=== PATIENT | female | born 1970 | race Caucasian/White ===

== ENCOUNTER → 2019-04-18 | Outpatient (CLI) | payer OTHER ==
[~2019-04-18] MED LIST: No meds per pt.
[2019-04-18 10:58] LABS: ALBUMIN 4.4 g/dL (3.4-5.0); ANION GAP 4 mmol/L (5-15); CALCIUM 9.3 mg/dL (8.5-10.1); CHLORIDE 109 mmol/L (98-107); MEAN CORPUSCULAR HEMOGLOBIN 29.4 pg (27.0-34.8); MEAN CORPUSCULAR HGB CONC 31.9 g/dL (32.4-35.8); MEAN CORPUSCULAR VOLUME 92.3 fL (80-100); MEAN PLATELET VOLUME 8.3 fL (7.4-10.4); PLATELET COUNT 345 x10^3/uL (130-400); RED BLOOD COUNT 5.17 x10^6/uL (3.82-5.3); RED CELL DISTRIBUTION WIDTH 22.4 % (9.6-15.2)
[2019-04-18 11:03] LABS: ALANINE AMINOTRANSFERASE 25 U/L (12-78); ALKALINE PHOSPHATASE 62 U/L (45-117); BILIRUBIN,TOTAL 0.3 mg/dL (0.2-1.0); CREATININE 0.77 mg/dL (0.55-1.02)
[2019-04-18 11:19] LABS: BASOPHILS # (AUTO) 0.04 x10^3/uL (0-0.1); BASOPHILS % (AUTO) 1 % (0-1); EOSINOPHILS # (AUTO) 0.19 x10^3/uL (0-0.4); EOSINOPHILS % (AUTO) 3 % (1-7); LYMPHOCYTES # (AUTO) 2.08 x10^3/uL (1-3.4); LYMPHOCYTES % (AUTO) 28 % (22-44); MD SCAN; MONOCYTES # (AUTO) 0.66 x10^3/uL (0.2-0.8); MONOCYTES % (AUTO) 9 % (2-9); NEUTROPHILS # (AUTO) 4.53 x10^3/uL (1.8-6.8); NEUTROPHILS % (AUTO) 60 % (42-75)
== END | disposition home or self-care (01) ==
LOC: STAR 09:54
PROVIDERS: ATTEND Obstetrics & Gynecology
DX: Z01.818 Encounter for other preprocedural examination (principal); D64.9 Anemia, unspecified; N85.2 Hypertrophy of uterus; D25.9 Leiomyoma of uterus, unspecified; N92.0 Excessive and frequent menstruation with regular cycle
CPT/HCPCS: 36415; 71046; 80053; 84703; 85025; 93005

== ENCOUNTER 2019-04-26 05:27 | Inpatient (IN) | payer OTHER ==
[~2019-04-26] VITALS: Ht 182.9 cm; Wt 73.0 kg
[2019-04-26] MEDS ORDERED: LACTATED RINGERS 1,000 ML IV SCH (06:03)
[2019-04-26] MEDS ORDERED: FLUORESCEIN SODIUM 500 MG/5 ML ONE (06:49)
[2019-04-26 06:55] LABS: HCG UR SG 1.023 (1.003-1.030)
[2019-04-26] MEDS ORDERED: FENTANYL PF 250 MCG/5ML ONE (07:21)
[2019-04-26] MEDS ORDERED: MIDAZOLAM 1 MG/ML, 2ML ONE (07:21)
[2019-04-26] MEDS ORDERED: MAGNESIUM SULFATE 1 GM/2 ML ONE (07:31)
[2019-04-26] MEDS ORDERED: KETOROLAC 30 MG/1 ML ONE (07:32)
[2019-04-26] MEDS ORDERED: METOCLOPRAMIDE 5 MG/ML, 2ML ONE (07:32)
[2019-04-26] MEDS ORDERED: SUGAMMADEX 200 MG/2 ML IVPush ONE (07:32)
[2019-04-26] MEDS ORDERED: KETAMINE 10 MG/ML, 20ML ONE (07:32)
[2019-04-26] MEDS ORDERED: PROMETHAZINE 25 MG/ML, 1ML IV PRN (08:30)
[2019-04-26] MEDS ORDERED: LABETALOL 5MG/ML, 20ML IV PRN (08:30)
[2019-04-26] MEDS ORDERED: hydrALAzine 20 MG/ML, 1ML IV PRN (08:30)
[2019-04-26] MEDS ORDERED: ONDANSETRON 2MG/ML, 2ML IV PRN ×2 (08:30→13:30)
[2019-04-26] MEDS ORDERED: MEPERIDINE/PF 25MG/ML,1ML IVPush PRN (08:30)
[2019-04-26] MEDS ORDERED: OXYcodone 5 MG/5 ML ORAL.SOL UDC PO PRN ×2 (08:30→13:30)
[2019-04-26] MEDS ORDERED: ACETAMINOPHEN 325 MG TABLET PO PRN ×2 (08:30→13:30)
[2019-04-26] MEDS ORDERED: LORazepam 2 MG/ML, 1ML IVPush PRN (08:30)
[2019-04-26] MEDS ORDERED: PROPOFOL 10 MG/ML, 20ML ONE (08:34)
[2019-04-26] MEDS ORDERED: ONDANSETRON 2MG/ML, 2ML ONE (08:34)
[2019-04-26] MEDS ORDERED: LIDOCAINE-MPF 2% ,5ML ONE (08:34)
[2019-04-26] MEDS ORDERED: ROCURONIUM 10MG/ML,5ML ONE (08:34)
[2019-04-26] MEDS ORDERED: DEXAMETHASONE 4 MG/ML, 1ML ONE ×2 (08:34)
[2019-04-26] MEDS ORDERED: CEFAZOLIN 1,000 MG ONE ×2 (08:34)
[2019-04-26] MEDS ORDERED: EPINEPHRINE 1 MG/ML, 1ML ONE (08:34)
[2019-04-26] MEDS ORDERED: ROPIvacaine/PF 0.5%, 30 ML ONE (08:34)
[2019-04-26] MEDS ORDERED: FENTANYL PF 100 MCG/2ML ONE (09:45)
[2019-04-26] MEDS: FENTANYL PF 100 MCG/2ML IV PRN ×2 (09:46→09:55)
[2019-04-26] MEDS: HYDROmorphone 2 MG/ML, 1ML IVPush PRN ×6 (10:15→11:20)
[2019-04-26] MEDS ORDERED: OXYcodone 5 MG/5 ML ORAL.SOL UDC ONE (10:16)
[2019-04-26] MEDS ORDERED: HYDROmorphone 1 MG/ML, 1ML INJ ONE ×2 (10:16→11:06)
[2019-04-26] MEDS ORDERED: PROMETHAZINE 25 MG/ML, 1ML ONE (10:20)
[2019-04-26] MEDS: D5%-LACTATED RINGERS 1,000 ML IV SCH ×2 (13:30→21:30)
[2019-04-26] MEDS ORDERED: KETOROLAC 30 MG/1 ML IV PRN (13:30)
[2019-04-26] MEDS ORDERED: morphine SULFATE 10 MG/ML, 1ML IV PRN (13:30)
[2019-04-26] MEDS ORDERED: ACETAMINOPHEN 650 MG SUPP PR PRN (13:30)
[2019-04-26] MEDS ORDERED: BISACODYL 10 MG SUPP PR PRN (13:30)
[2019-04-26 13:45] VITALS: BP 121/76
[2019-04-26 14:14] LABS: BASOPHILS % (AUTO) 0 % (0-1); EOSINOPHILS # (AUTO) 0.15 x10^3/uL (0-0.4); EOSINOPHILS % (AUTO) 1 % (1-7); LYMPHOCYTES # (AUTO) 0.37 x10^3/uL (1-3.4); LYMPHOCYTES % (AUTO) 2 % (22-44); MD NO; MEAN CORPUSCULAR HEMOGLOBIN 29.7 pg (27.0-34.8); MEAN CORPUSCULAR HGB CONC 32.5 g/dL (32.4-35.8); MEAN CORPUSCULAR VOLUME 91.4 fL (80-100); MEAN PLATELET VOLUME 8.4 fL (7.4-10.4); MONOCYTES # (AUTO) 0.45 x10^3/uL (0.2-0.8); MONOCYTES % (AUTO) 3 % (2-9); NEUTROPHILS # (AUTO) 15.51 x10^3/uL (1.8-6.8); NEUTROPHILS % (AUTO) 94 % (42-75); PLATELET COUNT 341 x10^3/uL (130-400); RED CELL DISTRIBUTION WIDTH 20.8 % (9.6-15.2)
[2019-04-26 14:26] LABS: ALBUMIN 4.2 g/dL (3.4-5.0); ANION GAP 7 mmol/L (5-15); CALCIUM 8.6 mg/dL (8.5-10.1); CHLORIDE 110 mmol/L (98-107)
[2019-04-26 14:30] LABS: ALANINE AMINOTRANSFERASE 19 U/L (12-78); ALKALINE PHOSPHATASE 37 U/L (45-117); BILIRUBIN,TOTAL 0.4 mg/dL (0.2-1.0); CREATININE 0.68 mg/dL (0.55-1.02); TOTAL PROTEIN 7.5 g/dL (6.4-8.2)
[2019-04-26] MEDS: OXYcodone/APAP 5/325MG TABLET PO PRN (15:16)
[2019-04-26] MEDS: SIMETHICONE 80 MG CHEW TAB PO SCH ×2 (17:31→21:23)
[2019-04-26] MEDS: IBUPROFEN 600 MG TABLET PO SCH ×2 (17:31→21:23)
[2019-04-26] MEDS ORDERED: SENNA/DOCUSATE TABLET PO SCH (21:00)
[2019-04-26] MEDS ORDERED: ZOLPIDEM 5MG TABLET PO PRN (21:00)
[2019-04-26] MEDS: DOCUSATE 100 MG CAPSULE PO SCH (21:23)
[2019-04-26 21:26] VITALS: BP 117/65
[2019-04-27 01:22] VITALS: BP 113/73
[2019-04-27 04:21] VITALS: BP 126/70
[2019-04-27] MEDS: OXYcodone/APAP 5/325MG TABLET PO PRN ×4 (04:36→17:34)
[2019-04-27] MEDS: D5%-LACTATED RINGERS 1,000 ML IV SCH ×2 (05:30→13:30)
[2019-04-27] MEDS: IBUPROFEN 600 MG TABLET PO SCH ×3 (06:40→16:09)
[2019-04-27 07:43] VITALS: BP 128/70
[2019-04-27] MEDS: DOCUSATE 100 MG CAPSULE PO SCH (09:10)
[2019-04-27] MEDS: SIMETHICONE 80 MG CHEW TAB PO SCH ×2 (09:10→16:09)
[2019-04-27 12:50] VITALS: BP 127/75
[2019-04-27] MEDS ORDERED: OXYC-302 PO (17:37)
[2019-04-27] MEDS ORDERED: DOCU-131 PO (17:39)
[2019-04-27] MEDS ORDERED: IBUP-1222 PO (17:39)
[2019-04-27 19:07] VITALS: BP 105/69
== END 2019-04-27 19:38 | disposition home or self-care (01) | DRG 743 ==
LOC: ORIP 05:27 → 4NE 12:26
PROVIDERS: ADMIT Obstetrics & Gynecology; ATTEND Obstetrics & Gynecology
PROC: 0UT70ZZ Resection of Bilateral Fallopian Tubes, Open Approach (ICD-10-PCS; 2019-04-26)
PROC: 3E0T3BZ Introduction of Anesthetic Agent into Peripheral Nerves and Plexi, Percutaneous Approach (ICD-10-PCS; 2019-04-26)
PROC: 0UT90ZZ Resection of Uterus, Open Approach (ICD-10-PCS; principal; 2019-04-26 07:30)
DX: D25.9 Leiomyoma of uterus, unspecified (principal); D50.9 Iron deficiency anemia, unspecified; N92.0 Excessive and frequent menstruation with regular cycle; N94.6 Dysmenorrhea, unspecified
CPT/HCPCS: 36415; J3490; 80053; 81025; 85025; 86850; 86900; 86923; 88307; G0378; J0171; J0690; J1100; J1170; J1885; J2250; J2405; J2550; J2704; J2795; J3010; J3475; J2765; J7120